=== PATIENT | female | born 1975 | race Caucasian/White ===

== ENCOUNTER 2024-02-23 14:54 | Emergency (ER) | payer MEDICAID ==
[~2024-02-23] VITALS: Ht 170.2 cm; Wt 54.0 kg
[2024-02-23 15:01] VITALS: BP 126/85; PULSE 110; O2SAT 98
[2024-02-23 15:23] LABS: BASOPHILS # (AUTO) 0.1 X10'3 (0-0.2); EOSINOPHILS # (AUTO) 0.1 X10'3 (0-0.9); LYMPHOCYTES # (AUTO) 1.3 X10'3 (1.1-4.8)
[2024-02-23 15:24] LABS: BASOPHILS % (AUTO) 0.5 % (0-1); EOSINOPHILS % (AUTO) 1.2 % (0-6); HEMATOCRIT 51.4 % (35.0-45.0); HEMOGLOBIN 17.2 g/dl (12.0-16.0); LYMPHOCYTES % (AUTO) 11.3 % (21-51); MEAN CORPUSCULAR HEMOGLOBIN 28.9 PG (27.0-31.0); MEAN CORPUSCULAR HGB CONC 33.4 g/dL (33.0-36.5); MEAN CORPUSCULAR VOLUME 86.3 FL (78-98); MEAN PLATELET VOLUME 7.1 FL (7.4-10.4); MONOCYTES # (AUTO) 0.9 X10'3 (0-0.9); MONOCYTES % (AUTO) 7.5 % (2-12); NEUTROPHILS # (AUTO) 9.1 X10'3 (1.8-7.7); NEUTROPHILS % (AUTO) 79.5 % (42-75); RED BLOOD COUNT 5.95 X10'6 (4.20-5.60); RED CELL DISTRIBUTION WIDTH 13.1 % (11.5-14.5); WHITE BLOOD COUNT 11.5 X10'3 (4.5-11.0)
[2024-02-23 15:27] LABS: PLATELET COUNT 1028 X10'3 (140-440)
[2024-02-23 15:39] LABS: ALANINE AMINOTRANSFERASE 48 U/L (12-78); ALBUMIN/GLOBULIN RATIO 1.1 (1.1-1.5); ALKALINE PHOSPHATASE 61 IU/L (46-116); ANION GAP 8 (8-16); ASPARTATE AMINO TRANSFERASE 16 U/L (10-37); BILIRUBIN,TOTAL 1.2 MG/DL (0.1-1.0); BLOOD UREA NITROGEN 10 MG/DL (7-18); BUN/CREATININE RATIO 13.2 (10.0-20.0); CHLORIDE 104 MMOL/L (99-107); CREATININE 0.76 MG/DL (0.40-0.90); GLUCOSE 159 MG/DL (70-104); POTASSIUM 4.5 MMOL/L (3.5-5.1); SODIUM 138 MMOL/L (135-145); TOTAL CARBON DIOXIDE 26.3 MMOL/L (24-32); TOTAL PROTEIN 7.8 G/DL (6.4-8.2); eCRCL 76 ML/MIN; eGFR 81 ML/MIN
[2024-02-23 15:46] LABS: PRO BRAIN NATRIURETIC PEPTIDE 32 PG/ML (0-125)
[2024-02-23 18:26] VITALS: RESP 16
[2024-02-23 20:45] VITALS: TEMP 98.3
[2024-02-23] MEDS: acetaminophen 325mg tablet PO ONE (20:45)
== END 2024-02-23 20:47 | disposition home or self-care (01) ==
LOC: ER 14:55
DX: D47.3 Essential (hemorrhagic) thrombocythemia (principal); R50.9 Fever, unspecified; R07.9 Chest pain, unspecified; Z88.4 Allergy status to anesthetic agent
CPT/HCPCS: 36415; 71045; 80053; 83880; 84145; 84484; 85025; 87502; 87503; 93005; 99285

== ENCOUNTER 2024-09-11 14:23 | Emergency (ER) | payer MEDICAID ==
[~2024-09-11] VITALS: Ht 170.2 cm; Wt 53.0 kg
[2024-09-11 16:11] LABS: EOSINOPHILS # (AUTO) 0.2 X10'3 (0-0.9); MEAN PLATELET VOLUME 7.1 FL (7.4-10.4); MONOCYTES # (AUTO) 0.9 X10'3 (0-0.9); WHITE BLOOD COUNT 8.2 X10'3 (4.5-11.0)
[2024-09-11 16:13] LABS: BASOPHILS % (AUTO) 0.6 % (0-1); EOSINOPHILS % (AUTO) 2.5 % (0-6); HEMATOCRIT 41.2 % (35.0-45.0); HEMOGLOBIN 13.7 g/dl (12.0-16.0); LYMPHOCYTES # (AUTO) 1.6 X10'3 (1.1-4.8); LYMPHOCYTES % (AUTO) 19.4 % (21-51); MEAN CORPUSCULAR HEMOGLOBIN 23.2 PG (27.0-31.0); MEAN CORPUSCULAR HGB CONC 33.2 g/dL (33.0-36.5); MEAN CORPUSCULAR VOLUME 70.1 FL (78-98); NEUTROPHILS # (AUTO) 5.4 X10'3 (1.8-7.7); NEUTROPHILS % (AUTO) 66.5 % (42-75); RED BLOOD COUNT 5.87 X10'6 (4.20-5.60); RED CELL DISTRIBUTION WIDTH 17.7 % (11.5-14.5)
[2024-09-11 16:16] LABS: PLATELET COUNT 1101 X10'3 (140-440)
[2024-09-11 16:22] LABS: APTT 29 SECONDS (22-32); INR 1.1 INR; PROTHROMBIN TIME 11.3 SECONDS (9.0-12.0)
[2024-09-11 16:27] LABS: ALANINE AMINOTRANSFERASE 33 U/L (12-78); ALKALINE PHOSPHATASE 61 IU/L (46-116); ANION GAP 5 (8-16); ASPARTATE AMINO TRANSFERASE 21 U/L (10-37); BILIRUBIN,TOTAL 0.9 MG/DL (0.1-1.0); BLOOD UREA NITROGEN 14 MG/DL (7-18); BUN/CREATININE RATIO 18.9 (10.0-20.0); CALCIUM 9.2 MG/DL (8.5-10.1); CHLORIDE 105 MMOL/L (99-107); CREATININE 0.74 MG/DL (0.40-0.90); GLUCOSE 96 MG/DL (70-104); SODIUM 141 MMOL/L (135-145); TOTAL CARBON DIOXIDE 30.6 MMOL/L (24-32); TOTAL PROTEIN 8.2 G/DL (6.4-8.2); eCRCL 77 ML/MIN; eGFR 83 ML/MIN
[2024-09-11 17:02] LABS: ANISOCYTOSIS 1+; BURR CELLS FEW; MICROCYTOSIS 1+; PLATELET ESTIMATE INCREASED
[2024-09-11 17:03] LABS: ELLIPTOCYTES FEW; GIANT PLATELET FEW; LARGE PLATELETS FEW
[2024-09-11] MEDS: magnesium oxide 400mg tablet PO ONE (20:30)
[2024-09-11 20:39] VITALS: BP 149/79; PULSE 74; RESP 16; TEMP 98.4; O2SAT 98
== END 2024-09-11 20:40 | disposition home or self-care (01) ==
LOC: ER 14:24
DX: M79.604 Pain in right leg (principal); M79.605 Pain in left leg; D75.1 Secondary polycythemia; I10 Essential (primary) hypertension; F12.90 Cannabis use, unspecified, uncomplicated; Z88.8 Allergy status to other drugs, medicaments and biological substances
CPT/HCPCS: 36415; 80053; 85008; 85025; 85610; 85730; 93970; 99284